=== PATIENT | female | born 1995 | race Caucasian/White ===

== ENCOUNTER 2024-07-14 21:11 | Emergency (ER) | payer BC, SELFPAY ==
[2024-07-14 21:14] VITALS: BP 115/80
[2024-07-14 21:53] VITALS: BP 104/74
[2024-07-14 21:57] VITALS: BMI 47.2
[2024-07-14 22:00] VITALS: BP 111/72
--- NOTE | 2024-07-14 22:27 | ED.GENMED ---
History of Present Illness
General
Chief Complaint: Abdominal Symptoms
Source: patient
Exam Limitations: none
Time Seen by Provider: 07/14/24 22:18
Nursing documentation reviewed up to this point in time: agreed with
History of Present Illness
History of Present Illness:
28-year-old female with past medical history of GERD, prior sleeve gastrectomy, prior cholecystectomy presents to the emergency department with mother for evaluation of nausea, vomiting, diarrhea in the setting of COVID. Patient reports that she
started with COVID symptoms on he says she had congestion/rhinorrhea, sore throat and hoarse voice, cough. She was having fevers and bodyaches. She was managing her symptoms with Tylenol and Motrin, went to urgent care on Thursday and was
positive for COVID. She was prescribed Paxlovid and has been taking for the past few days. Today she woke up and started to have nausea, vomiting, diarrhea and upper abdominal discomfort. Has not been able to keep down food, has been able to keep
down sips of water. Him to the emergency room to be evaluated. Denies any vaginal bleeding. Denies any urinary symptoms. Denies other complaints.
Past History
Past History
ED Past Medical History: None; Negative Asthma, HTN, Hypercholesterolemia or NIDDM
ED Past Surgical History: Cholecystectomy
Social History
Tobacco: Non-smoker
Alcohol: None
Personal: Single
Living: with family
Review of Systems
Review of Systems
All Other Systems: ROS reviewed and negative except as documented in HPI and ROS
Constitutional: Reports fever, fatigue and chills
EENT: Reports sore throat and runny nose
Respiratory: Reports cough; Denies trouble breathing
Cardiac: Denies chest pain
ABD/GI: Reports abdominal pain, nausea, vomiting and diarrhea
: Denies dysuria, frequency, flank pain or bleeding
Musculoskeletal: Reports muscle pain (Myalgias)
Skin: Denies rash
Neurological: Denies dizzy or headache
Phy Exam
Physical Exam
Physical Exam:
General: Awake, alert, oriented x3; no acute distress
Head: Normocephalic, atraumatic
Eyes: Conjunctiva normal, sclera anicteric
Throat: Airway intact, dry mucous membrane
Neck: Trachea midline, supple without meningismus
Lungs: Clear to auscultation bilaterally, no wheezing, rales, rhonchi
Heart: Tachycardia with regular rhythm, no murmurs, gallops, or rubs
Abd: Soft, non distended, minimally tender in the epigastrium
Neuro: No gross deficits
Extremities: No edema in extremities, equal pulses in all extremities
Scores
Heart Failure Risk
Heart Failure Risk Score: Not Applicable
Heart Score for Chest Pain Patients
STEMI patient?: Not applicable
Withdrawal Assessment of Alcohol
Withdrawal Assessment Completed?: Not applicable
Course
Orders/Labs/Results
Orders:
Orders
07/14/24 22:18
Ondansetron Injectable [Zofran] 4 mg IV NOW STA
Test Result ONCE
07/14/24 22:19
0.9% Sodium Chloride 1000 ml [Nss] 1,000 ml IV BOLUS
07/14/24 22:27
Ketorolac [Toradol] 15 mg IV NOW STA
07/14/24 23:23
CPK [Creatine Phosphokinase] Urgent
Complete Blood Count/With Diff Urgent
Comprehensive Metabolic Panel Urgent
HCG, Serum Qualitative Screen Urgent
Lipase Urgent
Urinalysis Reflex To Culture Urgent
Date Specimen was Collected: 07/14/24
Time Specimen was Collected: 23:11
Urine Microscopic Reflex Cult Urgent
07/15/24 01:25
Potassium Chloride Powder [Klor-Con] 20 meq PO NOW STA
Abnormal Lab Results
07/14/24
23:23
Abs Immat Gran (auto) 0.1 H 10^3/uL
(0-0.05)
Absolute Neuts (auto) 7.6 H 10^3/uL
(1.4-6.5)
Neutrophils % 81.1 H %
(42.2-75.2)
Lymphocytes % 13.0 L %
(20.5-51.1)
Potassium 3.4 L mmol/L
(3.5-5.1)
Glucose 101 H mg/dl
(70-99)
Creatine Kinase < 20 L U/L
(30-135)
Urine Ketones 3+ A
(Negative)
Urine Bacteria (Reflex) Few A
(Negative)
Urine Albumin (Reflex) 2+ A
(Neg - Trace)
07/14/24 23:23
07/14/24 23:23
Vital Signs
Initial and Last Documented VS:
Initial Vital Signs
Temp Pulse Resp BP Pulse Ox
37.5 C 120 20 115/80 97
07/14/24 21:14 07/14/24 21:14 07/14/24 21:14 07/14/24 21:14 07/14/24 21:14
Last Documented Vital Signs
Temp Pulse Resp BP Pulse Ox
37.8 C 83 22 111/72 96
07/15/24 01:25 07/15/24 01:15 07/15/24 01:15 07/14/24 22:00 07/15/24 01:15
MDM/Problems Addressed
Differential Diagnosis Includes:
Enteritis related to viral syndrome versus adverse effect of Paxlovid, less likely pancreatitis or ulcer
MDM/Problems Addressed:
28-year-old female presents for evaluation of nausea, vomiting, diarrhea and epigastric discomfort in the setting of known positive COVID test. Started Paxlovid 2 days ago for COVID and started with GI symptoms today. She is tachycardic otherwise
normal vitals. Physical exam as above. Place an IV check labs including a CBC and a CMP, lipase, hCG. Will check urinalysis. Treat with Zofran, fluids, Toradol for myalgias. Suspect that this is likely adverse effect of Paxlovid, will advise to
discontinue. Monitor closely reassess after the above.
Labs reviewed: CBC unremarkable, CMP mild hypokalemia will replete p.o. hCG negative. Urinalysis no infection. Patient feeling better after fluids and Zofran, Toradol. Will p.o. challenge and reassess.
Patient tolerating p.o. without issue she feels well. Will plan to discharge Zofran as needed. Mcmullen diet. Advised to discontinue Paxlovid as this may very well be a side effect of this although could also simply be symptoms from COVID infection.
She feels comfortable this plan. All questions answered.
*Pulse Oximetry
Patient hypoxic: no
*Critical Care Note
Total Time (30-74mins, 75-104mins- exclusive of procedures): Not Applicable
Data Reviewed
Review of Other/Old Records Reveals: Labs and Records
Source: patient and family
Further Testing Considered But Not Given:
Consider need for CT abdomen pelvis with minimal tenderness very low suspicion for intra-abdominal emergency and no indication for emergent imaging at this point
ED Attending Note
-
Portions of this chart may have been created with voice recognition software.� Occasional wrong word or��sound alike� substitutions may have occurred due to the inherent limitations of voice recognition software.
Discharge Plan
Departure
Patient Disposition: Home (Routine Discharge)
Date of Disposition: 07/15/24
Time of Disposition: 01:52
Patient with high blood pressure during this ER visit?: No
Discharge Problem:
Nausea & vomiting, COVID-19, Acute dehydration
Instructions: Dehydration, Adult (DC), Nausea and Vomiting, Adult (DC)
Prescriptions:
New
ondansetron 4 mg tablet,disintegrating
4 mg PO TIDPRN PRN (Reason: nausea/vomiting) Qty: 20 0RF
Referrals:
Adan,Sonali O., DO [Family Provider] - Follow up in 5-7 days
Activity Restrictions/Additional Instructions:
Thank you for visiting the Emergency Department at [facility].
1. Please schedule a follow up appointment as directed. Call first thing tomorrow morning to make an appointment.
2. If indicated, please take your medications as instructed and indicated on discharge paperwork.
3. If any of your symptoms do not improve, or persist, or become more severe within 6-12 hours, please return to the emergency department for further care.
4. Please return to the emergency department if you develop a headache, neck pain/stiffness, fever greater than 100.4F, chest pain, shortness of breath, persistent nausea, vomiting, slurred speech, difficulty walking, numbness/tingling, weakness,
signs of infection or any other symptoms that are worrisome to you.
Please call [phone] if you have any questions.
Interventions
Interventions:
*Risk Screen - Suicide Last Done: 07/14/24 21:14
*General Assessment Last Done: 07/14/24 21:14
*Neglect/Abuse Screening Last Done: 07/14/24 21:14
ED- Fall Risk Assessment Last Done: 07/14/24 21:45
*ED COVID-19 Vaccine History Last Done: 07/14/24 21:45
TX-Jzalaj-Ltwcxzhpnj Assessment Last Done: 07/14/24 21:45
Discharge Date and Time
Print Language: [id number]
[2024-07-14] MEDS: NSS 1000 IV (23:35)
[2024-07-14] MEDS: TORADOL 15 MG IV (23:35)
[2024-07-14] MEDS: ZOFRAN 4 MG IV (23:35)
[2024-07-14 23:40] LABS: % Basophils 0.4 % (0-2); % Eosinophils 0.1 % (0-6); % Immature Granulocytes 0.5 % (0-0.5); % Monocytes 4.9 % (1.7-9.3); % Neutrophils 81.1 % (42.2-75.2); Absolute Immature Granulocytes 0.1 10^3/uL (0-0.05); Absolute Lymphocytes 1.2 10^3/uL (1.2-3.4); Absolute Monocytes 0.5 10^3/uL (0.1-0.6); Absolute Neutrophils 7.6 10^3/uL (1.4-6.5); Hematocrit 41.7 % (37.0-47.0); Hemoglobin 14.2 g/dL (12.0-16.0); Mean Corp Hgb Conc. 34.1 g/dL (33.0-37.0); Mean Corpuscular Hgb 29.5 pg (27.0-31.0); Mean Corpuscular Volume 86.5 fL (81.0-99.0); Mean Platelet Volume 9.9 fL (7.4-10.4); Nucleated Red Blood Cells % 0 %; Platelet Count 256 10^3/uL (130-400); Red Blood Cell Count 4.82 10^6/uL (4.20-5.40); Red Cell Dist. Width 13.2 % (11.5-14.5); Urine Albumin 2+ (Neg - Trace); Urine Bilirubin Negative (Negative); Urine Character Clear (Clear); Urine Color Yellow; Urine Glucose Negative (Negative); Urine Ketone 3+ (Negative); Urine Leukocyte Negative (Negative); Urine Nitrite Negative (Negative); Urine Occult Blood Negative (Negative); Urine Specific Gravity 1.025 (<1.030); Urine Urobilinogen Negative (Neg - 1+); White Blood Cell Count 9.4 10^3/uL (4.8-10.8)
[2024-07-14 23:49] LABS: Urine Bacteria Few (Negative); Urine Mucus Few; Urine Red Blood Cell 0-2 /HPF (0-2); Urine Squamous Cell 26-30 /LPF (Few); Urine White Cell 0-2 /HPF (0-5)
[2024-07-14 23:59] LABS: HCG, Serum Qualitative Screen Negative
[2024-07-15 00:08] LABS: ALT (SGPT) 22 U/L (0-35); AST (SGOT) 22 U/L (14-36); Albumin 4.2 g/dl (3.5-5.0); Alkaline Phosphatase 75 U/L (38-126); Blood Urea Nitrogen 8 mg/dl (7-17); Calcium 9.1 mg/dl (8.4-10.2); Carbon Dioxide 24 mmol/L (22-30); Chloride 101 mmol/L (98-107); Creatine Phosphokinase < 20 U/L (30-135); Estimated Creatinine Clearance > 125 ml/min; Glucose 101 mg/dl (70-99); Lipase 35 U/L (23-300); Potassium 3.4 mmol/L (3.5-5.1); Sodium 135 mmol/L (135-145); Total Bilirubin 0.9 mg/dl (0.2-1.3); Total Protein 6.8 g/dl (6.3-8.2); eGFR > 60.00
[2024-07-15] MEDS: KLOR-CON 20 MEQ PO (01:41)
== END 2024-07-15 02:35 | disposition home or self-care (01) ==
LOC: EMR 21:11
PROVIDERS: EMERGENCY PHYSICIAN Emergency Medicine; FAMILY PHYSICIAN Family Medicine
DX: U07.1 COVID-19 (principal); R11.2 Nausea with vomiting, unspecified; E86.0 Dehydration
CPT/HCPCS: 99284; 96374; 96375; 96361; 80053; 81003; 81015; 82550; 83690; 84703; 85025